=== PATIENT | male | born 1985 | race Caucasian/White ===

== ENCOUNTER 2018-11-30 21:21 | Emergency (ER) | payer OTHER ==
[~2018-11-30] VITALS: Ht 170.2 cm; Wt 68.0 kg
[2018-11-30] MEDS ORDERED: TOBRADEX EYE DRO5 ML OPHTHALMIC (22:54)
[2018-11-30] MEDS ORDERED: NORCO 5-325 TA1 EAC1 PO (22:54)
[2018-11-30 23:10] VITALS: BP 137/89
== END 2018-11-30 23:10 | disposition home or self-care (01) ==
LOC: M.ERS 21:21
DX: H11.31 Conjunctival hemorrhage, right eye (principal); F17.200 Nicotine dependence, unspecified, uncomplicated